=== PATIENT | female | born 1995 | race African-American/Black ===

== ENCOUNTER 2021-02-13 11:15 | Emergency (ER) | payer SELFPAY ==
[~2021-02-13] VITALS: Ht 172.7 cm; Wt 115.0 kg
[2021-02-13] MEDS ORDERED: ACETAMINOPHEN WITH CODEINE 300/30MG TABLET PO ONE (12:00)
[2021-02-13 12:04] VITALS: BP 147/54
[2021-02-13] MEDS ORDERED: IBUP-2029 MT (12:24)
== END 2021-02-13 13:31 | disposition home or self-care (01) ==
LOC: ER 11:15
DX: K04.01 Reversible pulpitis (principal); F12.10 Cannabis abuse, uncomplicated
CPT/HCPCS: 81025; 99282

== ENCOUNTER 2021-07-09 20:59 | Emergency (ER) | payer SELFPAY ==
[~2021-07-09 20:59] MED LIST: IBUP-2029 MT
== END 2021-07-09 21:30 | disposition left against medical advice (07) ==
LOC: ER 20:59
DX: Z53.21 Procedure and treatment not carried out due to patient leaving prior to being seen by health care provider (principal)